=== PATIENT | female | born 1975 | race Caucasian/White ===

== ENCOUNTER 2021-12-06 07:45 | Outpatient (CLI) | payer BC | END 2021-12-06 07:46 | disposition home or self-care (01) | LOC: CSHCT 07:45 | PROVIDERS: ATTEND Physician Assistant Medical | DX: R10.31 Right lower quadrant pain (principal); R35.0 Frequency of micturition | CPT/HCPCS: 74177 ==

== ENCOUNTER 2022-01-22 16:00 | Outpatient (CLI) | payer BC | END 2022-01-22 16:01 | disposition home or self-care (01) | LOC: CSHULT 16:00 | PROVIDERS: ATTEND Otolaryngology Plastic Surgery within the Head & Neck | DX: E04.1 Nontoxic single thyroid nodule (principal) | CPT/HCPCS: 76536 ==